=== PATIENT | female | born 1960 ===

== ENCOUNTER 2016-06-24 10:05 | Emergency (ER) | payer OTHER ==
[2016-06-24 10:46] VITALS: RESP 18; TEMP 98
[2016-06-24] MEDS ORDERED: Albuterol 0.083% Inhal Sol (2.5 mg/3 mL) UD IH STA (11:40)
[2016-06-24] MEDS ORDERED: Albuterol 0.083% Inhal Sol (2.5 mg/3 mL) UD ONE (11:51)
--- NOTE | 2016-06-24 12:23 | C.PDOC ---
History Of Present Illness 55 year old female, with a past medical history of Asthma, Hypercholesterol, and seasonal allergies, presents to the emergency room for the evaluation of a continuous cough for 3 weeks. Patient notes that the cough has been gradually worsening. Patient reports that she has been unable to sleep for the past few nights due to dry cough with chest tightness and pain when coughing. Patient also reports painful swelling over the left lateral neck for the past week that she's been sick. Patient denies fever, chills, headache, dizziness, neck pain, dyspnea, diaphoresis, palpitation, wheezing, abdominal pain, nausea, vomiting, or any other complaints. Ambulate to Ed for evaluation, occasional dry cough noted. Time Seen by Provider: 06/24/16 11:13 Chief Complaint (Nursing): Cough, Cold, Congestion History Per: Patient History/Exam Limitations: no limitations Onset/Duration Of Symptoms: Gradual, Other (3 weeks) Current Symptoms Are (Timing): Still Present Location Of Pain: None Associated Symptoms: Cough. denies: Fever, Chills, Nausea, Vomiting, Diarrhea Ear Symptoms: Bilateral: None Severity: Mild Recent travel outside of the [place]: No Past Medical History Reviewed: Historical Data, Nursing Documentation, Vital Signs Vital Signs: Last Vital Signs Temp 98 F 06/24/16 10:44 Pulse 82 06/24/16 12:38 Resp 18 06/24/16 12:38 BP 122/75 06/24/16 12:38 Pulse Ox 96 06/24/16 16:04 - Medical History PMH: Arthritis, Asthma, Depression (NO MED), Diverticulitis, Hypercholesterolemia, Kidney Stones (SMALL), Migraine, Chronic Kidney Disease - [facility] Procedures COLONOSCOPY (08/29/13) Family History: States: Unknown Family Hx - Social History Hx Tobacco Use: No Hx Alcohol Use: No Hx Substance Use: No - Immunization History Hx Tetanus Toxoid Vaccination: No Hx Influenza Vaccination: No Hx Pneumococcal Vaccination: No Review Of Systems Except As Marked, All Systems Reviewed And Found Negative. Constitutional: Negative for: Fever, Chills Cardiovascular: Negative for: Other (Dyspnea) Respiratory: Positive for: Cough (Dry cough with accompanying chest tightness and pain when coughing). Negative for: Wheezing Gastrointestinal: Negative for: Nausea, Vomiting, Diarrhea Musculoskeletal: Positive for: Other (Painful swelling over the left lateral neck) Physical Exam - Physical Exam Appears: Well, Non-toxic Skin: Normal Color, Warm, Dry, No Rash Head: Atraumatic, Normacephalic Eye(s): bilateral: PERRL Ear(s): Bilateral: Normal Nose: No Discharge, No Tenderness, Other (Bilateral nasal congestion) Oral Mucosa: Moist, No Drooling, No Trismus Throat: Normal, No Erythema, No Exudate Neck: Normal ROM, Trachea Midline, No Step Off Deformity, Supple, Other ( slightky tender and Palpable mass anterior and middle to SCM muscle. No erythema. No fluctuance.) Cardiovascular: Rhythm Regular, No Friction Rub, No Murmur, No JVD Respiratory: No Decreased Breath Sounds, No Accessory Muscle Use, No Rales, No Rhonchi, Wheezing (Scattered bibasilar wheezing) Gastrointestinal/Abdominal: Soft, No Tenderness, No Guarding, No Rebound Back: No CVA Tenderness Extremity: Normal ROM, No Pedal Edema Neurological/Psych: Oriented x3, Normal Speech, Normal Cognition ED Course And Treatment O2 Sat by Pulse Oximetry: 96 Pulse Ox Interpretation: Normal - Radiology CXR: Interpreted by Me, Viewed By Me CXR Interpretation: Yes: No Acute Disease Progress Note: On re-evaluation, pt is afebrile, hemodynamicaly stable. Non- toxic. Pt reports, mod improvement in sx and cough. PulsEOx 96% RA. ENT: no acute findings. neck: Supple, (-) JVD, (-) meningeal sign. Small tender mas anterior to SCM muscle r/o brachial cleft cyst. Lungs: CTA B/L, BS equal B/L. Abd: benign. Ext: (-) pedal edema. CXR and neck soft tissue xray review and appears without acute abnormalities. Pt advised and ref. to f/u with PMD, ENT In 2-3 days for re-eval. return if any new changes. Disposition Counseled Patient/Family Regarding: Studies Performed, Diagnosis, Need For Followup, Rx Given - Disposition Referrals: [facility] [Outside] Disposition: HOME/ ROUTINE Disposition Time: 12:21 Condition: STABLE Additional Instructions: Encourage fluids Take medication as prescribed Follow up with PMD in 2-3 days for re-evaluation. FOLLOW UP WITH ENT DUE TO LEFT SIDED NECK SWELLING LIKELY BRACHIAL CLEFT CYST Return to ED if any worsening or new changes. Prescriptions: Albuterol HFA [Ventolin HFA 90 mcg/actuation (8 g)] 1 puff IH Q6 #1 inhaler Loratadine [Claritin] 10 mg PO DAILY #20 tab Prednisone [Deltasone] 40 mg PO DAILY #6 tablet Promethazine/Codeine [Phenergan/Codeine Oral Syrup] 10 ml PO TID #80 ml Instructions: Asthma (ED) Print Language: CHINESE - Clinical Impression Clinical Impression: Asthma - Scribe Statement The provider has reviewed the documentation as recorded by the Scribadrian Albrecht All medical record entries made by the Mabelibadrian were at my direction and personally dictated by me. I have reviewed the chart and agree that the record accurately reflects my personal performance of the history, physical exam, medical decision making, and the department course for this patient. I have also personally directed, reviewed, and agree with the discharge instructions and disposition.
[2016-06-24 12:39] VITALS: BP 122/75; PULSE 82
[2016-06-24 12:41] VITALS: O2SAT 96
--- NOTE | 2016-06-24 13:14 | RAD ---
HISTORY: Cough COMPARISON: None available TECHNIQUE: Chest PA and lateral FINDINGS: LUNGS: No focal consolidation. Please note that chest x-ray has limited sensitivity for the detection of pulmonary masses. PLEURA: No significant pleural effusion identified. No definite pneumothorax . CARDIOVASCULAR: The cardiomediastinal silhouette appears within normal limits of size. OSSEOUS STRUCTURES: Mild degenerative changes. VISUALIZED UPPER ABDOMEN: Unremarkable. OTHER FINDINGS: None. IMPRESSION: No focal consolidation, significant pleural effusion, or definite pneumothorax identified.
--- NOTE | 2016-06-24 16:43 | RAD ---
PROCEDURE: Radiographs of the neck (soft tissue). HISTORY: left side painful swelling COMPARISON: None. TECHNIQUE: Frontal and Lateral Radiographs of the neck, optimized for soft tissue visualization. FINDINGS: SOFT TISSUES: Unremarkable. No radiopaque foreign body seen. CERVICAL SPINE: Anterior cervical spondylosis OTHER FINDINGS: C5-6 disc space narrow. Anterior calcification and are ossification C6-7 anterior intervertebral disc space and just above this disc enter ligamentous calcifications are some considerations. No donor site apparent IMPRESSION: Cervical spondylosis and degenerative disc disease.
== END 2016-06-24 12:39 | disposition home or self-care (01) ==
LOC: C.ER 10:05
DX: J45.909 Unspecified asthma, uncomplicated (principal)

== ENCOUNTER 2016-07-24 11:43 | Observation (INO) | payer OTHER ==
--- NOTE | 2016-07-24 13:31 | C.PDOC ---
History Of Present Illness 55 y/o female presents to ED sent from Clinic with complaints of left chest pain radiating to upper back. Patient describes pain as "burning and states symptoms are ongoing but became worse 07/21/16. Patient was at clinic today when symptoms worsen and she was sent to ED for ADMISSION Patient denies fever, SOB, N/V/D or any other complaints at this time. Time Seen by Provider: 07/24/16 12:52 Chief Complaint (Nursing): Chest Pain History Per: Patient History/Exam Limitations: no limitations Onset/Duration Of Symptoms: Days Current Symptoms Are (Timing): Still Present Quality: Burning Associated Symptoms: denies: Nausea Past Medical History Reviewed: Historical Data, Nursing Documentation, Vital Signs Vital Signs: Last Vital Signs Temp 97.5 F L 07/24/16 11:55 Pulse 80 07/24/16 14:05 Resp 18 07/24/16 14:05 BP 132/90 07/24/16 14:05 Pulse Ox 98 07/24/16 15:21 - Medical History PMH: Arthritis, Asthma, Depression (NO MED), Diverticulitis, Hypercholesterolemia, Kidney Stones (SMALL), Migraine, Chronic Kidney Disease - [facility] Procedures COLONOSCOPY (08/29/13) Family History: States: Unknown Family Hx - Social History Hx Tobacco Use: No Hx Alcohol Use: No Hx Substance Use: No - Immunization History Hx Tetanus Toxoid Vaccination: No Hx Influenza Vaccination: No Hx Pneumococcal Vaccination: No Review Of Systems Except As Marked, All Systems Reviewed And Found Negative. Constitutional: Negative for: Fever, Chills Cardiovascular: Positive for: Chest Pain, Palpitations Respiratory: Negative for: Shortness of Breath Gastrointestinal: Negative for: Nausea, Vomiting, Diarrhea Musculoskeletal: Positive for: Back Pain Neurological: Negative for: Weakness, Headache Physical Exam - Physical Exam Appears: Non-toxic, No Acute Distress Skin: Normal Color, Warm Head: Atraumatic, Normacephalic Oral Mucosa: Moist Chest: Symmetrical Cardiovascular: Rhythm Regular Respiratory: No Rales, No Rhonchi, No Wheezing Gastrointestinal/Abdominal: Soft, No Tenderness, No Guarding, No Rebound Extremity: Normal ROM, Capillary Refill (< 2 seconds) Neurological/Psych: Oriented x3, Normal Speech, Normal Cognition ED Course And Treatment - Laboratory Results Result Diagrams: 07/24/16 14:12 07/24/16 14:12 O2 Sat by Pulse Oximetry: 98 Progress - Data Reviewed Data Reviewed: Lab, Diagnostic imaging, EKG, Old records - Continuity of Care Discussed patient case with:: Patient, Covering for PMD Disposition Counseled Patient/Family Regarding: Studies Performed, Diagnosis - Disposition Disposition: HOSPITALIZED Disposition Time: 15:20 Condition: STABLE - POA Present On Arrival: None - Clinical Impression Clinical Impression: Chest pain - PA / ONCOLOGY PHYSICIAN / Resident Statement MD/DO has reviewed & agrees with the documentation as recorded. MD/DO has examined the patient and agrees with the treatment plan. - Scribe Statement The provider has reviewed the documentation as recorded by the Scribe Bishop Lima All medical record entries made by the Derek were at my direction and personally dictated by me. I have reviewed the chart and agree that the record accurately reflects my personal performance of the history, physical exam, medical decision making, and the department course for this patient. I have also personally directed, reviewed, and agree with the discharge instructions and disposition. Decision To Admit - Pt Status Changed To: Hospital Disposition Of: Observation - . Bed Request Type: Telemetry Admitting Physician: Jailyn Linton Patient Diagnosis: Chest pain
--- NOTE | 2016-07-24 14:13 | RAD ---
HISTORY: chest pain COMPARISON: Chest x-ray performed 06/24/16 TECHNIQUE: Chest PA and lateral FINDINGS: Examination limited by habitus. LUNGS: Mild left basilar subsegmental atelectasis. Several sub cm right lower lobe calcified granulomas re-identified. Please note that chest x-ray has limited sensitivity for the detection of pulmonary masses. PLEURA: No significant pleural effusion identified. No definite pneumothorax . CARDIOVASCULAR: Heart size appears within normal limits. OSSEOUS STRUCTURES: Degenerative changes. VISUALIZED UPPER ABDOMEN: Unremarkable. OTHER FINDINGS: None. IMPRESSION: Mild left basilar subsegmental atelectasis.
[2016-07-24 14:20] LABS: BASO # 0.1 K/uL (0.0-0.2); BASO % 0.8 % (0.0-2.0); EOS # 0.2 K/uL (0.0-0.7); EOS % 2.5 % (0.0-4.0); HEMATOCRIT 40.5 % (34.0-47.0); LYMPH # 3.1 K/uL (1.0-4.3); LYMPH % 38.2 % (20.0-40.0); MEAN CELL VOLUME 83.9 fL (81.0-99.0); MEAN CORPUSCULAR HEMOGLOBIN 27.1 pg (27.0-31.0); MEAN CORPUSCULAR HGB CONC 32.3 g/dL (33.0-37.0); MEAN PLATELET VOLUME 8.2 fL (7.2-11.7); MONO # 0.6 K/uL (0.0-0.8); MONO % 7.8 % (0.0-10.0); NRBC % 0.1 % (0.0-2.0); RED CELL DISTRIBUTION WIDTH 14.7 % (11.5-14.5); WHITE BLOOD COUNT 8.1 K/uL (4.8-10.8)
[2016-07-24 14:51] LABS: CHLORIDE 103 mmol/L (98-107)
[2016-07-24 14:52] LABS: POTASSIUM 4.3 mmol/L (3.6-5.2); SODIUM 141 mmol/L (132-148)
[2016-07-24 14:55] LABS: ALB/GLOB RATIO 1.5 (1.0-2.1); ALKALINE PHOSPHATASE 88 U/L (38-126); ALT/SGPT 26 U/L (9-52); AST/SGOT 29 U/L (14-36); BILIRUBIN,TOTAL 0.7 mg/dL (0.2-1.3); BLOOD UREA NITROGEN 15 mg/dL (7-17); CALCIUM 9.1 mg/dl (8.6-10.4); CARBON DIOXIDE 22 mmol/L (22-30); GFR AFRICAN-AMERICAN > 60; GLUCOSE,RANDOM 100 mg/dL (65-105); TOTAL PROTEIN 7.3 g/dL (6.3-8.3)
[2016-07-24] MEDS ORDERED: Albuterol-Ipratrop 3 mg / 0.5 (3 ml) UD INH PRN (17:43)
--- NOTE | 2016-07-24 17:43 | CP.PCM.HP ---
<Lauren Cardenas - Last Filed: 07/24/16 17:35> History of Present Illness - History of Present Illness History of Present Illness: CC: "chest pain" 55 year old female with PMHx of asthma presents with 1 month history of left sided chest pain. Admits chest pain got worst 4 days ago. Pain is sharp, 10 out of 10 and radiated to left back. Pain is exacerbated with movement of left arm. There is pain with deep inspiration. Denies trauma or heavy lifting. He has not tried anything for the pain. Admits to cough at night related to asthma. Patient is not compliant with asthma meds due to costs. Patient had cardiac workup in May [address] William. Admits to occasional dizziness secondary to pain. Admits to numbness and tingling down left arm to left middle finger. Denies SOB, headaches, wheezing, fevers, chills, nausea, vomiting, changes in vision. PMHX: asthma, hyperlpidemia, HPV warts. Meds: Ventolin HFA PRN Vitamin D. Surgery Hx: C section and BTL. Social Hx: denies tobacco, alcohol, illicit drug use. Unemployed. Allergy: PCN Family Hx: father of CO at 73 bpm. Mother with DM. PMD: Dr. Harper. Present on Admission - Present on Admission Any Indicators Present on Admission: No Review of Systems - Constitutional Constitutional: absent: Chills, Fever - EENT Eyes: absent: Blurred Vision, Change in Vision - Cardiovascular Cardiovascular: Chest Pain, Chest Pain at Rest. absent: Claudication, Diaphoresis, Dyspnea, Edema, Leg Edema - Respiratory Respiratory: Cough. absent: Dyspnea, Wheezing - Gastrointestinal Gastrointestinal: absent: Abdominal Pain, Constipation, Diarrhea, Nausea, Vomiting - Genitourinary Genitourinary: absent: Difficulty Urinating, Dysuria - Musculoskeletal Musculoskeletal: Back Pain, Numbness, Tingling - Integumentary Integumentary: absent: Wounds - Neurological Neurological: Dizziness, Numbness, Tingling. absent: Syncope, Weakness - Endocrine Endocrine: Fatigue. absent: Palpitations Past Patient History - Infectious Disease Hx of Infectious Diseases: None - Past Medical History & Family History Past Medical History?: Yes - Past Social History Smoking Status: Never Smoked - CARDIAC Hx Hypercholesterolemia: Yes - PULMONARY Hx Asthma: Yes - NEUROLOGICAL Hx Migraine: Yes - HEENT Hx HEENT Problems: Yes Hx Glaucoma: Yes (NO MED) - RENAL Hx Chronic Kidney Disease: Yes Hx Kidney Stones: Yes (SMALL) - ENDOCRINE/METABOLIC Hx Endocrine Disorders: No - HEMATOLOGICAL/ONCOLOGICAL Hx Blood Disorders: No Hx Blood Transfusions: No - INTEGUMENTARY Hx Dermatological Problems: No - MUSCULOSKELETAL/RHEUMATOLOGICAL Hx Arthritis: Yes - GASTROINTESTINAL Hx Diverticulitis: Yes - GENITOURINARY/GYNECOLOGICAL Hx Genitourinary Disorders: No - PSYCHIATRIC Hx Depression: Yes (NO MED) Hx Substance Use: No - SURGICAL HISTORY Hx Surgeries: Yes Hx Section: Yes Hx Tubal Ligation: Yes Other/Comment: c section - ANESTHESIA Hx Anesthesia: Yes Hx Anesthesia Reactions: No Hx Malignant Hyperthermia: No Meds Allergies/Adverse Reactions: Allergies Allergy/AdvReac Type Severity Reaction Status Date / Time Penicillins Allergy Mild Verified 05/16/15 21:07 seasonal Allergy Uncoded 06/24/16 11:26 Physical Exam - Constitutional Appears: No Acute Distress - Head Exam Head Exam: ATRAUMATIC, NORMAL INSPECTION - Eye Exam Eye Exam: EOMI, Normal appearance - ENT Exam ENT Exam: Mucous Membranes Moist - Neck Exam Neck exam: Positive for: Full Rom, Normal Inspection - Respiratory Exam Respiratory Exam: Clear to Auscultation Bilateral, NORMAL BREATHING PATTERN - Cardiovascular Exam Cardiovascular Exam: REGULAR RHYTHM, +S1, +S2 - GI/Abdominal Exam GI & Abdominal Exam: Normal Bowel Sounds, Soft. absent: Distended, Tenderness - Extremities Exam Extremities exam: Positive for: normal inspection. Negative for: pedal edema - Back Exam Back exam: NORMAL INSPECTION - Neurological Exam Neurological exam: Alert, Oriented x3 - Psychiatric Exam Psychiatric exam: Normal Affect, Normal Mood - Skin Skin Exam: Dry, Normal Color, Warm Results - Vital Signs Recent Vital Signs: Last Vital Signs Temp 97.5 F L 07/24/16 11:55 Pulse 80 07/24/16 15:34 Resp 18 07/24/16 15:34 BP 141/97 H 07/24/16 15:34 Pulse Ox 97 07/24/16 15:34 - Labs Result Diagrams: 07/24/16 14:12 07/24/16 14:12 Assessment & Plan (1) Chest pain Assessment and Plan: Pain is likely muscular in nature. Patient with recent stress test 05/30/16 which was normal. Pain likely not cardiac. Will observe on telemetry overnight. ECHO done 05/30/2016 showed EF 50-55% EKG in the ED NSR 71 bpm ROBSON negative X 1 Follow up ROBSON Q8H X2 Follow up EKG Q8H X2 Toradol PRN Q6H PRN for pain. ASA 81 mg PO daily Crestor 5 mg PO HS f/u TSH in the AM. f/u Hgb A1C in the AM Status: Acute (2) History of asthma Assessment and Plan: Duonebs Q6H PRN Status: Chronic (3) Hyperlipemia Assessment and Plan: As seen on recent FLP. Start Crestor 5 mg PO HS Status: Acute (4) Prophylactic measure Assessment and Plan: Protonix 40 mg PO Daily Heparin 5000 SC Q8H SCDs Status: Acute <Venu Quan - Last Filed: 07/24/16 18:13> Results - Vital Signs Recent Vital Signs: Last Vital Signs Temp 98.1 F 07/24/16 18:02 Pulse 74 07/24/16 18:02 Resp 16 07/24/16 18:02 BP 120/84 07/24/16 18:02 Pulse Ox 97 07/24/16 18:02 - Labs Result Diagrams: 07/24/16 14:12 07/24/16 14:12 Attending/Attestation - Attestation I have personally seen and examined this patient.: Yes I have fully participated in the care of the patient.: Yes I have reviewed all pertinent clinical information: Yes Notes (Text): 07/24/16 18:12 Patient was seen and examined at bedside with the resident Patient is reproducible on the movement of the left arm and on palpation of the left shoulder muscles Pain is likely musculoskeletal however we will rule out acute coronary syndrome by obtaining serial troponins We will also obtain an x-ray of the cervical spine and upper shoulder I discussed the plan of care with the resident and agree with the above history and physical and assessment/plan by the resident.
[2016-07-24 21:18] LABS: CHLORIDE 102 mmol/L (98-107); POTASSIUM 4.2 mmol/L (3.6-5.2); SODIUM 140 mmol/L (132-148)
[2016-07-24 21:20] LABS: GFR AFRICAN-AMERICAN > 60
[2016-07-24 21:21] LABS: BLOOD UREA NITROGEN 15 mg/dL (7-17); CALCIUM 9.3 mg/dl (8.6-10.4); CARBON DIOXIDE 26 mmol/L (22-30); GLUCOSE,RANDOM 93 mg/dL (65-105)
[2016-07-25 04:45] LABS: BASO # 0.1 K/uL (0.0-0.2); BASO % 0.9 % (0.0-2.0); EOS # 0.3 K/uL (0.0-0.7); EOS % 3.6 % (0.0-4.0); HEMATOCRIT 41.1 % (34.0-47.0); LYMPH # 4.2 K/uL (1.0-4.3); LYMPH % 50.7 % (20.0-40.0); MEAN CELL VOLUME 83.3 fL (81.0-99.0); MEAN CORPUSCULAR HEMOGLOBIN 27.2 pg (27.0-31.0); MEAN CORPUSCULAR HGB CONC 32.7 g/dL (33.0-37.0); MEAN PLATELET VOLUME 8.3 fL (7.2-11.7); MONO # 0.5 K/uL (0.0-0.8); MONO % 6.4 % (0.0-10.0); RED CELL DISTRIBUTION WIDTH 14.6 % (11.5-14.5); WHITE BLOOD COUNT 8.3 K/uL (4.8-10.8)
[2016-07-25 05:09] LABS: CHLORIDE 104 mmol/L (98-107); POTASSIUM 4.1 mmol/L (3.6-5.2); SODIUM 138 mmol/L (132-148)
[2016-07-25 05:11] LABS: ALB/GLOB RATIO 1.6 (1.0-2.1); AST/SGOT 34 U/L (14-36); BILIRUBIN,TOTAL 0.8 mg/dL (0.2-1.3); CARBON DIOXIDE 22 mmol/L (22-30); GFR AFRICAN-AMERICAN > 60; TOTAL PROTEIN 7.4 g/dL (6.3-8.3)
[2016-07-25 05:12] LABS: ALKALINE PHOSPHATASE 79 U/L (38-126); ALT/SGPT 30 U/L (9-52); BLOOD UREA NITROGEN 18 mg/dL (7-17); CALCIUM 9.1 mg/dl (8.6-10.4); GLUCOSE,RANDOM 108 mg/dL (65-105)
[2016-07-25 05:42] LABS: THYROID STIMULATING HORMONE 0.49 mIU/L (0.46-4.68)
[2016-07-25 08:20] VITALS: RESP 18
[2016-07-25] MEDS ORDERED: Pantoprazole 40 mg EC Tab PO SCH (10:00)
[2016-07-25] MEDS ORDERED: Pneumococcal 23-Valent Vaccine IM ONE (10:00)
[2016-07-25 15:54] VITALS: BP 112/78; PULSE 80; TEMP 98; O2SAT 96
--- NOTE | 2016-07-25 16:14 | RAD ---
PROCEDURE: Radiographs of the Left Shoulder HISTORY: left shoulder pain COMPARISON: No prior. FINDINGS: BONES: Normal. No fracture. JOINTS: Normal. Glenohumeral and acromioclavicular joints preserved. No osteoarthritis. SOFT TISSUES: Normal. OTHER FINDINGS: None. IMPRESSION: Normal radiographs of the left shoulder.
--- NOTE | 2016-07-25 16:17 | RAD ---
PROCEDURE: Cervical Spine Radiographs. HISTORY: Pain. COMPARISON: None. FINDINGS: BONES: Alignment maintained. No fracture. Dens Intact. DISC SPACES: Narrowed C5-6 intervertebral disc space with osteophytes consistent with degenerative disc disease. SOFT TISSUES: Normal. No prevertebral soft tissue swelling. OTHER FINDINGS: None. IMPRESSION: Degenerative disc disease at C5-6. No fracture or dislocation.
--- NOTE | 2016-07-25 17:36 | CARD ---
APPROVED REPORT EKG Measurement Heart [id number] <Conclusion> Normal sinus rhythm Normal ECG
--- NOTE | 2016-07-25 17:46 | CARD ---
APPROVED REPORT EKG Measurement Heart [id number] <Conclusion> Normal sinus rhythm Normal ECG
--- NOTE | 2016-07-25 22:26 | CP.PCM.DIS ---
<Vanessa Campbell - Last Filed: 07/26/16 14:28> Provider - Provider Date of Admission: 07/24/16 15:21 Attending physician: Jailyn Linton DO Primary care physician: Dr. Harper Time Spent in preparation of Discharge (in minutes): 31 Diagnosis - Discharge Diagnosis (1) Chest pain Status: Acute Comment: please see hospital course (2) Degenerative disc disease, cervical Status: Acute (3) Left shoulder pain Status: Acute Comment: please see hospital course (4) Asthma Status: Chronic Comment: please see hospital course (5) Hyperlipemia Status: Chronic Comment: please see hospital course Hospital Course - Lab Results Lab Results: Most Recent Lab Values WBC 8.3 K/uL (4.8-10.8) 07/25/16 04:42 RBC 4.93 Mil/uL (3.80-5.20) 07/25/16 04:42 Hgb 13.4 g/dL (11.0-16.0) 07/25/16 04:42 Hct 41.1 % (34.0-47.0) 07/25/16 04:42 MCV 83.3 fL (81.0-99.0) 07/25/16 04:42 MCH 27.2 pg (27.0-31.0) 07/25/16 04:42 MCHC 32.7 g/dL (33.0-37.0) L 07/25/16 04:42 RDW 14.6 % (11.5-14.5) H 07/25/16 04:42 Plt Count 249 K/uL (130-400) 07/25/16 04:42 MPV 8.3 fL (7.2-11.7) 07/25/16 04:42 Neut % (Auto) 38.4 % (50.0-75.0) L 07/25/16 04:42 Lymph % (Auto) 50.7 % (20.0-40.0) H 07/25/16 04:42 Steele % (Auto) 6.4 % (0.0-10.0) 07/25/16 04:42 Eos % (Auto) 3.6 % (0.0-4.0) 07/25/16 04:42 Baso % (Auto) 0.9 % (0.0-2.0) 07/25/16 04:42 Neut # 3.2 K/uL (1.8-7.0) 07/25/16 04:42 Lymph # 4.2 K/uL (1.0-4.3) 07/25/16 04:42 Steele # 0.5 K/uL (0.0-0.8) 07/25/16 04:42 Eos # 0.3 K/uL (0.0-0.7) 07/25/16 04:42 Baso # 0.1 K/uL (0.0-0.2) 07/25/16 04:42 Sodium 138 mmol/L (132-148) 07/25/16 04:42 Potassium 4.1 mmol/L (3.6-5.2) 07/25/16 04:42 Chloride 104 mmol/L (98-107) 07/25/16 04:42 Carbon Dioxide 22 mmol/L (22-30) 07/25/16 04:42 Anion Gap 17 (10-20) 07/25/16 04:42 BUN 18 mg/dL (7-17) H 07/25/16 04:42 Creatinine 0.9 MG/DL (0.7-1.2) 07/25/16 04:42 Est GFR ( Amer) > 60 07/25/16 04:42 Est GFR (Non-Af Amer) > 60 07/25/16 04:42 Random Glucose 108 mg/dL (65-105) H 07/25/16 04:42 Hemoglobin A1c 6.1 % (4.2-6.5) 07/25/16 04:42 Calcium 9.1 mg/dl (8.6-10.4) 07/25/16 04:42 Total Bilirubin 0.8 mg/dL (0.2-1.3) 07/25/16 04:42 AST 34 U/L (14-36) 07/25/16 04:42 ALT 30 U/L (9-52) 07/25/16 04:42 Alkaline Phosphatase 79 U/L (38-126) 07/25/16 04:42 Total Creatine Kinase 97 U/L (30-135) 07/25/16 04:42 CK-MB (Mass) 0.43 ng/mL (0.0-3.38) 07/25/16 04:42 Troponin I < 0.0120 ng/mL (0.00-0.120) 07/24/16 14:12 Troponin I, Quant < 0.0120 ng/mL (0.00-0.120) 07/25/16 04:42 Total Protein 7.4 g/dL (6.3-8.3) 07/25/16 04:42 Albumin 4.5 g/dL (3.5-5.0) 07/25/16 04:42 Globulin 2.9 gm/dL (2.2-3.9) 07/25/16 04:42 Albumin/Globulin Ratio 1.6 (1.0-2.1) 07/25/16 04:42 Free T4 1.04 ng/dL (0.78-2.19) 07/25/16 04:42 Total T3 2.00 nmol/L (1.49-2.60) 07/25/16 04:42 TSH 3rd Generation 0.49 mIU/L (0.46-4.68) 07/25/16 04:42 - Hospital Course Hospital Course: On admission: CC: "chest pain" 55 year old female with PMHx of asthma presents with 1 month history of left sided chest pain. Admits chest pain got worst 4 days ago. Pain is sharp, 10 out of 10 and radiated to left back. Pain is exacerbated with movement of left arm. There is pain with deep inspiration. Denies trauma or heavy lifting. He has not tried anything for the pain. Admits to cough at night related to asthma. Patient is not compliant with asthma meds due to costs. Patient had cardiac workup in May [address] William. Admits to occasional dizziness secondary to pain. Admits to numbness and tingling down left arm to left middle finger. Denies SOB, headaches, wheezing, fevers, chills, nausea, vomiting, changes in vision. PMHX: asthma, hyperlpidemia, HPV warts. Meds: Ventolin HFA PRN Vitamin D. Surgery Hx: C section and BTL. Social Hx: denies tobacco, alcohol, illicit drug use. Unemployed. Allergy: PCN Family Hx: father of [place] at 73 bpm. Mother with DM. PMD: Dr. Harper During hospital course, the following was performed: (1) Chest pain Pain likely not cardiac. Pain likely muscular in nature. Patient with recent stress test 05/30/16 which was normal. Patient was observed on telemetry overnight. ECHO done on 05/30/2016 showed EF 50-55% EKG in the ED NSR 71 bpm ROBSON negative x 3 and no acute changed on serial EKG. Toradol Q6H PRN was given for pain. ASA 81 mg PO daily Crestor 5 mg PO HS TSH/free T4 were within normal limits Hemoglobin a1c 6.1 (2) Degenerative Cervical Spine Disease Cervical Spine AP & Lateral X-RAY: Narrowed C5-6 intervertebral disc space with osteophytes consistent with degenerative disc disease (see full report). (3) Left Shoulder Pain Shoulder X-RAY (07/25/16): Normal radiographs of left shoulder (see full report). (4) History of asthma Patient was placed on Duonebs Q6H PRN (5) Hyperlipidemia As seen on recent FLP. Patient started on Crestor 5 mg PO HS (6) Prophylactic measure Protonix 40 mg PO Daily Heparin 5000 SC Q8H SCDs Please note this is a summary of the hospital course. For full details, please see patient chart. Discharge Instructions: Patient medically stable for discharge. Patient instructed to continue taking home medications as prescribed by primary care doctor. Patient instructed to follow-up with her primary care doctor in [facility] within one week of discharge for post- hospitalization follow-up and care. Patient instructed to return to the emergency department if symptoms recur. Patient given detailed instructions at bedside. Patient understands and agrees. - Date & Time of H&P Date of H&P: 07/24/16 Time of H&P: 17:35 Discharge Exam - Head Exam Head Exam: ATRAUMATIC, NORMAL INSPECTION - Eye Exam Eye Exam: EOMI, Normal appearance - ENT Exam ENT Exam: Mucous Membranes Moist, Normal Exam - Respiratory Exam Respiratory Exam: Clear to PA & Lateral, NORMAL BREATHING PATTERN, UNREMARKABLE - Cardiovascular Exam Cardiovascular Exam: +S1, +S2. absent: Bradycardia, Tachycardia - GI/Abdominal Exam GI & Abdominal Exam: Normal Bowel Sounds, Unremarkable. absent: Distended, Firm - Extremities Exam Extremities exam: normal capillary refill Additional comments: pain elicited with left shoulder rotation - Back Exam Back exam: absent: tenderness - Neurological Exam Neurological exam: Alert, CN II-XII Intact, Normal Gait, Oriented x3 - Psychiatric Exam Psychiatric exam: Normal Affect, Normal Mood - Skin Skin Exam: Intact, Normal Color Discharge Plan - Follow Up Plan Condition: STABLE Disposition: HOME/ ROUTINE Instructions: Chest Pain (DC), Heart Healthy Diet (DC) Additional Instructions: Patient medically stable for discharge. Patient instructed to continue taking home medications as prescribed by primary care doctor. Patient instructed to follow-up with her primary care doctor in [facility] within one week of discharge for post- hospitalization follow-up and care. Patient instructed to return to the emergency department if symptoms recur. Patient given detailed instructions at bedside. Patient understands and agrees. Referrals: Lorena Harper MD [Staff Provider] - <Venu Quan - Last Filed: 07/26/16 16:00> Provider - Provider Date of Admission: 07/24/16 15:21 Attending physician: Jailyn Linton [facility] Course - Lab Results Lab Results: Most Recent Lab Values WBC 8.3 K/uL (4.8-10.8) 07/25/16 04:42 RBC 4.93 Mil/uL (3.80-5.20) 07/25/16 04:42 Hgb 13.4 g/dL (11.0-16.0) 07/25/16 04:42 Hct 41.1 % (34.0-47.0) 07/25/16 04:42 MCV 83.3 fL (81.0-99.0) 07/25/16 04:42 MCH 27.2 pg (27.0-31.0) 07/25/16 04:42 MCHC 32.7 g/dL (33.0-37.0) L 07/25/16 04:42 RDW 14.6 % (11.5-14.5) H 07/25/16 04:42 Plt Count 249 K/uL (130-400) 07/25/16 04:42 MPV 8.3 fL (7.2-11.7) 07/25/16 04:42 Neut % (Auto) 38.4 % (50.0-75.0) L 07/25/16 04:42 Lymph % (Auto) 50.7 % (20.0-40.0) H 07/25/16 04:42 Steele % (Auto) 6.4 % (0.0-10.0) 07/25/16 04:42 Eos % (Auto) 3.6 % (0.0-4.0) 07/25/16 04:42 Baso % (Auto) 0.9 % (0.0-2.0) 07/25/16 04:42 Neut # 3.2 K/uL (1.8-7.0) 07/25/16 04:42 Lymph # 4.2 K/uL (1.0-4.3) 07/25/16 04:42 Steele # 0.5 K/uL (0.0-0.8) 07/25/16 04:42 Eos # 0.3 K/uL (0.0-0.7) 07/25/16 04:42 Baso # 0.1 K/uL (0.0-0.2) 07/25/16 04:42 Sodium 138 mmol/L (132-148) 07/25/16 04:42 Potassium 4.1 mmol/L (3.6-5.2) 07/25/16 04:42 Chloride 104 mmol/L (98-107) 07/25/16 04:42 Carbon Dioxide 22 mmol/L (22-30) 07/25/16 04:42 Anion Gap 17 (10-20) 07/25/16 04:42 BUN 18 mg/dL (7-17) H 07/25/16 04:42 Creatinine 0.9 MG/DL (0.7-1.2) 07/25/16 04:42 Est GFR ( Amer) > 60 07/25/16 04:42 Est GFR (Non-Af Amer) > 60 07/25/16 04:42 Random Glucose 108 mg/dL (65-105) H 07/25/16 04:42 Hemoglobin A1c 6.1 % (4.2-6.5) 07/25/16 04:42 Calcium 9.1 mg/dl (8.6-10.4) 07/25/16 04:42 Total Bilirubin 0.8 mg/dL (0.2-1.3) 07/25/16 04:42 AST 34 U/L (14-36) 07/25/16 04:42 ALT 30 U/L (9-52) 07/25/16 04:42 Alkaline Phosphatase 79 U/L (38-126) 07/25/16 04:42 Total Creatine Kinase 97 U/L (30-135) 07/25/16 04:42 CK-MB (Mass) 0.43 ng/mL (0.0-3.38) 07/25/16 04:42 Troponin I < 0.0120 ng/mL (0.00-0.120) 07/24/16 14:12 Troponin I, Quant < 0.0120 ng/mL (0.00-0.120) 07/25/16 04:42 Total Protein 7.4 g/dL (6.3-8.3) 07/25/16 04:42 Albumin 4.5 g/dL (3.5-5.0) 07/25/16 04:42 Globulin 2.9 gm/dL (2.2-3.9) 07/25/16 04:42 Albumin/Globulin Ratio 1.6 (1.0-2.1) 07/25/16 04:42 Free T4 1.04 ng/dL (0.78-2.19) 07/25/16 04:42 Total T3 2.00 nmol/L (1.49-2.60) 07/25/16 04:42 TSH 3rd Generation 0.49 mIU/L (0.46-4.68) 07/25/16 04:42 Attending/Attestation - Attestation I have personally seen and examined this patient.: Yes I have fully participated in the care of the patient.: Yes I have reviewed all pertinent clinical information, including history, physical exam and plan: Yes Notes (Text): 07/26/16 16:00 Patient was seen and examined at bedside with the resident This a late computer entry Acute coronary syndrome ruled out. Patient likely has musculoskeletal pain. I agree with the above discharge note by the resident.
--- NOTE | 2016-07-27 02:03 | CARD ---
APPROVED REPORT EKG Measurement Heart [id number] <Conclusion> Normal sinus rhythm Normal ECG
== END 2016-07-25 18:39 | disposition home or self-care (01) ==
LOC: C.ER 11:43 → C.9E 15:21 → C.6T 17:09
PROVIDERS: ADMIT Hospitalist; ATTEND Hospitalist
DX: R07.9 Chest pain, unspecified (principal); E78.5 Hyperlipidemia, unspecified; J45.909 Unspecified asthma, uncomplicated; M50.30 Other cervical disc degeneration, unspecified cervical region; M25.512 Pain in left shoulder
CPT/HCPCS: 36415; 71020; 72040; 73030; 80048; 80053; 83036; 84439; 84443; 84480; 84484; 85025; 93005; 96374; 99285; G0378; J1644; J1885; J2270

== ENCOUNTER 2018-02-24 10:43 | Outpatient (CLI) | payer OTHER | END 2018-02-24 10:44 | disposition home or self-care (01) | LOC: C.USIC 10:44 | DX: E04.1 Nontoxic single thyroid nodule (principal) ==

== ENCOUNTER 2018-07-14 12:34 | Outpatient (CLI) | payer OTHER | END 2018-07-14 12:35 | disposition home or self-care (01) | LOC: C.MAMMO 12:35 ==